=== PATIENT | female | born 1955 | race Asian ===

== ENCOUNTER 2016-10-15 06:36 | Day surgery (SDC) | payer MEDICAID ==
[2016-10-15 06:59] LABS: HEMATOCRIT 39.9 % (36.0-47.0); HEMOGLOBIN 13.1 g/dL (12.0-15.5); HGB HCT DIFFERENCE -0.6; MEAN CORPUSCULAR HEMOGLOBIN 30.9 pg (27.0-33.4); MEAN CORPUSCULAR HGB CONC 32.9 g/dL (32.0-36.0); MEAN CORPUSCULAR VOLUME 94 fl (80-97); RED BLOOD COUNT 4.25 10^6/uL (3.72-5.28); RED CELL DISTRIBUTION WIDTH 15.3 % (11.5-14.0); WHITE BLOOD COUNT 4.1 10^3/uL (4.0-10.5)
[2016-10-15 07:12] LABS: ANION GAP 18 (5-19); BLOOD UREA NITROGEN 65 mg/dL (7-20); CALCIUM 9.7 mg/dL (8.4-10.2); CARBON DIOXIDE 28 mmol/L (22-30); CHLORIDE 89 mmol/L (98-107); CREATININE RESULT 6.12 mg/dL (0.52-1.25); GLUCOSE 155 mg/dL (75-110); POTASSIUM 5.5 mmol/L (3.6-5.0); SODIUM 134.7 mmol/L (137-145)
[2016-10-15] MEDS ORDERED: LIDOCAINE 0.5% INJ-PF (5 MG/ML) 50 ML SDV ONE (08:07)
[2016-10-15] MEDS ORDERED: MIDAZOLAM 2 MG/2 ML INJ ONE (08:27)
[2016-10-15] MEDS ORDERED: HEPARIN SOD (PORCINE) 5,000 UNIT/ML 1 ML SYRINGE ONE (08:28)
[2016-10-15] MEDS ORDERED: FENTANYL CITRATE INJ/PF 100 MCG/2 ML AMPUL ONE (08:28)
[2016-10-15 10:43] VITALS: BP 135/68
--- NOTE | 2016-10-15 11:04 | PDOC DISCHARGE SUMMARY ---
Discharge Summary (SDC) - Discharge Final Diagnosis: 1 malfunctioning arteriovenous fistula. #2 end-stage renal disease on hemodialysis. #3 multiple comorbidities. Date of Surgery: 10/15/16 Discharge Date: 10/15/16 Condition: Fair Forms: Sedation D/C Instructions, Discharge POC-Surgical Service Treatment or Instructions: #1 activities within moderation encouraged. #2 follow up in my office by appointment in about 2 weeks. Call for appointment. #3 the wounds covered clean and dry under removed indialysis.. #4 hold off on school/work until evaluation in office. #5 may shower in 48 hours, keep operated area as dry as possible. #6 discharge from ambulatory when ASU criteria met. #7 medications per medication reconciliation sheet. Referrals: JANAY MORRIS MD [ACTIVE STAFF] - 10/24/16 8:15 am Discharge Diet: Other (Comments) - Renal Respiratory Treatments at Home: Deep Breathing/Coughing Discharge Activity: Activity As Tolerated, Balance Activity w/Rest, No Lifting/ Push/Pulling Home Care Assistance: None Needed Report the Following to Your Physician Immediately: Shortness of Breath, Nausea , Unusual Bleeding
--- NOTE | 2016-10-15 11:11 | Operative Report ---
Operative Report DATE OF SURGERY: 10/15/16 PREOPERATIVE DIAGNOSIS: #1 malfunctioning arteriovenous fistula. #2 end-stage renal disease on hemodialysis. #3 multiple comorbidities. POSTOPERATIVE DIAGNOSIS: #1 malfunctioning arteriovenous fistula. #2 end-stage renal disease on hemodialysis. #3 multiple comorbidities. OPERATION: #1 needle access into arteriovenous fistula, right brachiocephalic. The graft #2 angioplasty in arteriovenous fistula, cephalic. #3 angioplasty in right subclavian vein, central. #4 angiogram and interpretation. SURGEON: JANAY FAIR CHARGEMASTER SPECIALIST: none ANESTHESIA: Moderate Sedation TISSUE REMOVED OR ALTERED: Not applicable. COMPLICATIONS: None ESTIMATED BLOOD LOSS: 5 mL. INTRAOPERATIVE FINDINGS: Of a well-founded right brachiocephalic fistula. Firm all the way up to the deltopectoral groove and substantial. Good bruit. Angiographic finding of a short segment stenosis 30% of the adjacent lumen with a culprit collateral. This was about 4 cm from the subclavian cephalic junction. A second lesion is noted in the subclavian just before the innominate and this represents about 30% of the adjacent lumen also a short segment. The angioplasty succeeded in almost eliminating the subclavian stenosis a residual about 10% stenosis in the cephalic. Dilatation today was up to 9 mm. Subsequently he may need to go up to 10 or even 12 mm. The fistula which was quite firm initially softened appropriately at the end of the procedure that the hemodynamically significant lesions have been successfully addressed. PROCEDURE: PROCEDURE: After verifying the procedure and having obtained informed consent, the patient's left arm was prepared with Chlorhexidine and draped out with sterile linen. Local anesthesia infiltrated. Percutaneous access into the fistula ,[ antegrade], obtained about [6 cm] from the arteriovenous anastomosis using a micro puncture needle followed by micro puncture wire and then a micro puncture catheter. Angiogram demonstrated the aforementioned findings. Angioplasty was elected. A 0.035 Jennings wire was inserted, and over this, a 7 [place] short introducer was placed, this was followed by a [8] angioplasty balloon . Angioplasty was done covering the subclavian lesion. Inflating up to 14 atmospheres for 2 minutes.] The balloon was deflated and withdrawn and centered around the cephalic lesion. Inflation was done slowly, maximum of 14 tala for 2 minutes. Completion angiogram demonstrated residual stenoses. The balloon was now changed over the guidewire for a 9 mm angioplasty balloon. This was first inflated at the subclavian lesion for spheres for 2 minutes. It was withdrawn and angioplasty carefully done in the cephalic and up to 14 tala for 2 minutes. Completion angiograms showed [satisfactory result]. The instrumentation was now withdrawn over pressure for 10 minutes. Dressings applied, procedure concluded. Exposure time: 0.5 minutes Radiation: 10 kenzie per centimeters squared Contrast: 25 mL of Isovue-M 300, low osmolality. DICTATING PHYSICIAN: JANAY MORRIS M.D. cc: JANAY MORRIS M.D. ([id number]) >>
== END 2016-10-15 10:35 | disposition home or self-care (01) ==
LOC: CCL 06:36
PROVIDERS: ATTEND Surgery
PROC: 057D3DZ Dilation of Right Cephalic Vein with Intraluminal Device, Percutaneous Approach (ICD-10-PCS; principal; 2016-10-15)
DX: T82.858A Stenosis of other vascular prosthetic devices, implants and grafts, initial encounter (principal); Y83.2 Surgical operation with anastomosis, bypass or graft as the cause of abnormal reaction of the patient, or of later complication, without mention of misadventure at the time of the procedure; N18.6 End stage renal disease; Z99.2 Dependence on renal dialysis; E11.22 Type 2 diabetes mellitus with diabetic chronic kidney disease; D64.9 Anemia, unspecified; E03.9 Hypothyroidism, unspecified; Z79.899 Other long term (current) drug therapy
CPT/HCPCS: 36415; 85027; 80048; 36902; 36901; C1725; C1752; C1894; Q9967; C1769; J2250; J1644 ×2; J3010; J3490

== ENCOUNTER → 2017-05-08 | Outpatient (CLI) | payer MEDICAID ==
--- NOTE | 2017-05-08 18:36 | XCELERA REPORT ---
[address] [address] Transthoracic Echocardiogram Report Name: NILA MANSFIELD Age: 62 yrs Gender: Female : 1955 Patient Status: Outpatient Patient Location: Study Date: 05/08/2017 10:50 AM Height: 60 in Weight: 105 lb BSA: 1.4 m2 Reason For Study: MURMUR Ordering Physician: GARLAND DURAN Performed By: Naomi Bryan Interpretation Summary Calcified aortic root with no dilatation. 3 cusps sclerotic AV with no and no AR. Mild MR with mild L A enlargement, no MS no MVP. No LVH, normal LVEF 65% with LVDD and no LV enlargement. No RWMA Mod TR with mod pulm hypertension [id number], RAP 8.No RH enlargement. MMode/2D Measurements & Calculations RVDd: 2.4 cm LVIDd: 4.5 cm FS: 39.8 % Ao root diam: IVSd: 0.87 cm LVIDs: 2.7 cm EDV(Teich): 94.1 ml 2.6 cm LVPWd: 0.85 cm ESV(Teich): 27.8 ml Ao root area: EF(Teich): 70.5 % 5.3 cm2 LA dimension: 3.6 cm LVOT diam: LVLd ap4: 7.7 cm SV(MOD-sp4): 54.0 ml 1.8 cm EDV(MOD-sp4): LA A2Cs: 18.0 cm2 LVOT area: 79.0 ml LVLs ap4: 5.8 cm 2.5 cm2 ESV(MOD-sp4): 25.0 ml EF(MOD-sp4): 68.4 % LA A4Cs: LA length: 5.8 cm LA Vol Index (BP): LA Volume: 53.9 ml 20.5 cm2 38.0 ml/m2 Doppler Measurements & Calculations MV E max alex: MV P1/2t max alex: Ao V2 max: LV V1 max P.2 cm/sec 145.3 cm/sec 190.0 cm/sec 5.8 mmHg MV A max alex: MV P1/2t: 56.3 msec Ao max PG: LV V1 mean P.0 cm/sec MVA(P1/2t): 3.9 cm2 14.4 mmHg 3.4 mmHg MV E/A: 1.3 MV dec slope: Ao V2 mean: LV V1 max: 124.1 cm/sec 119.9 cm/sec 755.6 cm/sec2 Ao mean PG: LV V1 mean: 7.2 mmHg 87.9 cm/sec Ao V2 VTI: LV V1 VTI: 45.0 cm 32.5 cm ADIEL(I,D): 1.8 cm2 ADIEL(V,D): 1.6 cm2 SV(LVOT): 80.4 ml PA V2 max: TR max alex: 106.4 cm/sec 301.9 cm/sec PA max P.5 mmHg TR max P.5 mmHg Left Ventricle The left ventricle is normal in size, thickness and function. There is normal left ventricular wall thickness. The left ventricular ejection fraction is normal. Doppler measurements suggest impaired left ventricular relaxation, which is associated with grade I/IV or mild diastolic dysfunction. No regional wall motion abnormalities noted. There is no thrombus. Right Ventricle The right ventricle is normal in size, thickness and function. Atria The right atrium is normal. The left atrial size is normal. The left atrium is mildly dilated. The interatrial septum is intact with no evidence for an atrial septal defect. Mitral Valve The mitral valve is normal in structure and function. There is no evidence of mitral valve prolapse. There is no mitral valve stenosis. There is a mild amount of mitral regurgitation. Aortic Valve The aortic valve is moderately calcified. The aortic valve opens well. The aortic valve is trileaflet. There is no aortic valvular vegetation. There is no aortic stenosis. No aortic regurgitation is present. Tricuspid Valve The tricuspid valve is not well visualized, but is grossly normal. There is no tricuspid valve prolapse. There is no tricuspid stenosis. There is a moderate amount of tricuspid regurgitation. Best estimated right ventricular systolic pressure is elevated at 40-50mmHg. Pulmonic Valve There is no pulmonic valvular regurgitation. Great Vessels The aortic root is normal size. Effusions Minimal pericardial effusion. I WMSI = 1.00 % Normal = 100 Segments Size X - Cannot 2 - 4 - 1-2 small Interpret 1 - Normal Hypokinetic 3 - AkineticDyskinetic 3-5 moderate 5 - 6-14 large Aneurysmal 15-16 diffuse : GARLAND DURAN > Garland Duran
== END ==
LOC: SP 10:27
PROVIDERS: ATTEND Internal Medicine Cardiovascular Disease
DX: R01.1 Cardiac murmur, unspecified (principal)
CPT/HCPCS: 93306

== ENCOUNTER 2018-10-02 11:48 | Emergency (ER) | payer MEDICAID ==
[2018-10-02 12:21] LABS: VENOUS BLOOD HCO3 28.4 mmol/L (20-32); VENOUS BLOOD PCO2 46.4 mmHg (35-63); VENOUS BLOOD PH 7.4 (7.30-7.42)
[2018-10-02 12:24] LABS: HEMATOCRIT 32.5 % (36.0-47.0); HEMOGLOBIN 11.1 g/dL (12.0-15.5); MEAN CORPUSCULAR HEMOGLOBIN 32.6 pg (27.0-33.4); MEAN CORPUSCULAR VOLUME 96 fl (80-97); PLATELET COUNT 194 10^3/uL (150-450); RED BLOOD COUNT 3.39 10^6/uL (3.72-5.28); RED CELL DISTRIBUTION WIDTH 14.6 % (11.5-14.0); WHITE BLOOD COUNT 8.6 10^3/uL (4.0-10.5)
[2018-10-02 12:29] LABS: INTERNATIONAL RATION (INR) 1.15; PROTHROMBIN TIME 15.3 SEC (11.4-15.4)
[2018-10-02 12:44] LABS: ALANINE AMINOTRANSFERASE 13 U/L (9-52); ALBUMIN 4.6 g/dL (3.5-5.0); ALKALINE PHOSPHATASE 157 U/L (38-126); ANION GAP 16 (5-19); ASPARTATE AMINO TRANSFERASE 23 U/L (14-36); BILIRUBIN,DIRECT 1.1 mg/dL (0.0-0.4); BILIRUBIN,TOTAL 1.9 mg/dL (0.2-1.3); BLOOD UREA NITROGEN 43 mg/dL (7-20); CALCIUM 9.2 mg/dL (8.4-10.2); CARBON DIOXIDE 25 mmol/L (22-30); CHLORIDE 96 mmol/L (98-107); GLUCOSE 158 mg/dL (75-110); POTASSIUM 4.8 mmol/L (3.6-5.0); SODIUM 137.4 mmol/L (137-145); TOTAL PROTEIN 8.1 g/dL (6.3-8.2)
[2018-10-02 12:46] LABS: ABSOLUTE LYMPHOCYTES# (MANUAL) 0.3 10^3/uL (0.5-4.7); ABSOLUTE MONOCYTES # (MANUAL) 0.1 10^3/uL (0.1-1.4); ABSOLUTE NEUTROPHILS# (MANUAL) 8.1 10^3/uL (1.7-8.2); BASOPHILS % (MANUAL) 0 % (0-2); EOSINOPHILS % (MANUAL) 1 % (0-6); HYPOCHROMASIA SLIGHT; LYMPHOCYTES % (MANUAL) 4 % (13-45); MONOCYTES % (MANUAL) 1 % (3-13); PLATELET COMMENT ADEQUATE; POLYCHROMASIA SLIGHT; SEGMENTED NEUTROPHILS % (MAN) 94 % (42-78); TOTAL CELLS COUNTED 100; TOXIC GRANULATION SLIGHT
--- NOTE | 2018-10-02 13:02 | RADIOLOGY REPORT (SQ) ---
EXAM DESCRIPTION: CHEST SINGLE VIEW COMPLETED DATE/TIME: 10/02/2018 12:52 pm REASON FOR STUDY: bed 17 sepsis protocol COMPARISON: 08/18/2015 03/25/2015. EXAM PARAMETERS: NUMBER OF VIEWS: One view. TECHNIQUE: Single frontal radiographic view of the chest acquired. RADIATION DOSE: NA LIMITATIONS: None. FINDINGS: LUNGS AND PLEURA: Elevation of the left hemidiaphragm with left pleural effusion, similar appearance to prior studies. Small right pleural effusion. MEDIASTINUM AND HILAR STRUCTURES: No masses. Contour normal. HEART AND VASCULAR STRUCTURES: Heart normal in size. Normal vasculature. BONES: No acute findings. HARDWARE: Right subclavian stent. OTHER: No other significant finding. IMPRESSION: ELEVATION OF THE LEFT HEMIDIAPHRAGM WITH LEFT PLEURAL EFFUSION, SIMILAR TO PRIOR STUDIES . SMALL RIGHT PLEURAL EFFUSION. TECHNICAL DOCUMENTATION: JOB ID: [id number] [employer]- All Rights Reserved Reading location - IP/workstation name: [facility]
[2018-10-02 14:54] LABS: APPEARANCE,URINE CLEAR; BILIRUBIN,URINE NEGATIVE (NEGATIVE); COLOR,URINE YELLOW; GLUCOSE, URINE >=500 mg/dL (NEGATIVE); KETONES,URINE NEGATIVE (NEGATIVE); LEUKOCYTE ESTERASE,URINE NEGATIVE (NEGATIVE); NITRITE,URINE NEGATIVE (NEGATIVE); PROTEIN,URINE 100 mg/dL (NEGATIVE); URINE SPECIFIC GRAVITY 1.007; UROBILINOGEN,URINE NEGATIVE mg/dL (<2.0)
--- NOTE | 2018-10-02 15:54 | ER Document Report ---
ED General - General Chief Complaint: Shortness Of Breath Stated Complaint: FEVER Time Seen by Provider: 10/02/18 12:25 Notes: 63-year-old female brought in by EMS for evaluation of fever not feeling well with abdominal pain. Reportedly patient was at dialysis when she developed a fever and chills. Did not feel well. Was brought here. Patient would like fluid drained off her abdomen. Has chronic ascites. States that she feels much better but did receive Tylenol before she came. TRAVEL OUTSIDE OF THE [place] IN LAST 30 DAYS: No - HPI Onset: Just prior to arrival Onset/Duration: Constant Quality of pain: Achy Severity: Mild Pain Level: 1 Associated symptoms: Fever Exacerbated by: Movement - Related Data Allergies/Adverse Reactions: insulin aspart [Insulin Aspart] Allergy (Verified 08/29/16 09:14) Past Medical History - General Information source: Patient, [facility] Records - Social History Smoking Status: Never Smoker Frequency of alcohol use: None Drug Abuse: None Lives with: Family Family History: CVA Patient has suicidal ideation: No Patient has homicidal ideation: No - Past Medical History Cardiac Medical History: Reports: Hx Atrial Fibrillation, Hx Hypertension Denies: Hx Coronary Artery Disease, Hx Heart Attack Pulmonary Medical History: Reports: Hx Pneumonia Denies: Hx Asthma, Hx Bronchitis, Hx COPD Neurological Medical History: Denies: Hx Cerebrovascular Accident, Hx Seizures Endocrine Medical History: Reports: Hx Diabetes Mellitus Type 2 Renal/ Medical History: Reports: Hx End Stage Renal Disease, Hx Hemodialysis. Denies: Hx Peritoneal Dialysis GI Medical History: Reports: Hx Gastroesophageal Reflux Disease Musculoskeletal Medical History: Denies Hx Arthritis Psychiatric Medical History: Reports: Hx Depression Past Surgical History: Reports: Hx Orthopedic Surgery - aug Rhip hemiprosthesis, Hx Vascular Surgery - Fistula RUE - Immunizations Immunizations up to date: No Hx Diphtheria, Pertussis, Tetanus Vaccination: Yes Review of Systems - Review of Systems Notes: Review of systems positive for the following: Fever, abdominal pain, chills Constitutional: +Chills, denies diaphoresis, +Fever, denies malaise, Weakness EENT: denies: Eye discharge, Blurred vision, Tearing, Double vision, Nose congestion, Nose discharge, Throat swelling, Mouth pain Cardiovascular: denies: Palpitations, Heart racing, denies chest pain but does report shortness of breath and orthopnea Respiratory: denies: Cough, Hurts to breathe, Wheezing,. Positive for shortness of breath Gastrointestinal: denies:, Diarrhea, Nausea, Vomiting, Black stools, bright red blood in stool. Positive for abdominal pain Genitourinary: denies: Burning, Dysuria, Discharge, Frequency, Flank pain, Hematuria Musculoskeletal: denies: Joint pain, Joint swelling, Muscle pain, Muscle stiffness, back pain Hematologic/Lymphatic: denies: Anemia, Easy bleeding, Easy bruising, Blood clots Neurological/Psychological: denies: Confusion, Dementia, Depression, Loss of consciousness Skin: No lesions, no masses, no skin breakdown, no abscesses Physical Exam - Vital signs Vitals: Resp Pulse Ox 28 H 100 10/02/18 12:02 10/02/18 12:02 Interpretation: Normal - General General appearance: Appears well, Alert - HEENT Head: Normocephalic, Atraumatic Eyes: Normal Pupils: PERRL - Respiratory Respiratory status: No respiratory distress Chest status: Nontender Breath sounds: Normal Chest palpation: Normal - Cardiovascular Rhythm: Regular Heart sounds: Normal auscultation Murmur: No - Abdominal Inspection: Normal Distension: No distension Bowel sounds: Normal Tenderness: Tender - Moderate tenderness right upper quadrant Organomegaly: No organomegaly - Back Back: Normal, Nontender - Extremities General upper extremity: Normal inspection, Nontender, Normal color, Normal ROM, Normal temperature, Other - AV fistula site present in the right upper extremity with positive thrill and bruit. No signs of infection. No abscess. General lower extremity: Normal inspection, Nontender, Normal color, Normal ROM, Normal temperature, Normal weight bearing. No: Kit's sign - Neurological Neuro grossly intact: Yes Cognition: Normal Orientation: AAOx4 [place] Coma Scale Eye Opening: Spontaneous [place] Coma Scale Verbal: Oriented [place] Coma Scale Motor: Obeys Commands [place] Coma Scale Total: 15 Speech: Normal Motor strength normal: LUE, RUE, LLE, RLE Sensory: Normal - Psychological Associated symptoms: Normal affect, Normal mood - Skin Skin Temperature: Warm Skin Moisture: Dry Skin Color: Normal Course - Re-evaluation Re-evalutation: 10/02/18 19:46 Due to the fact the patient had a fever and abdominal pain labs were obtained. Labs show slightly elevated bilirubin and slightly elevated AST and ALT. Ul trasound showed gallstones with a dilated common bile duct. Consulted with surgery as well as medicine. They feel patient needs to be transferred where there is a doggy daycare activities director and ability to potentially do an ERCP. CT scan ordered to help further delineate any other intra-abdominal pathology. Consulted with [facility]. They have accepted the patient. Dr. Arias accepting. CT scan was ordered which showed some airspace disease. We have given her antibiotics. Possible that her fever is coming from PNA but these incidental findings with the gallbladder and common bile duct still need to be addressed. We will proceed with transfer patient 10/02/18 20:40 10/02/18 20:46 Laboratory 10/02/18 10/02/18 10/02/18 11:58 11:58 11:58 WBC RBC Hgb Hct MCV MCH MCHC RDW Plt Count Total Counted Seg Neutrophils % Seg Neuts % (Manual) Lymphocytes % Lymphocytes % (Manual) Monocytes % Monocytes % (Manual) Eosinophils % Eosinophils % (Manual) Basophils % Basophils % (Manual) Absolute Neutrophils Abs Neuts (Manual) Absolute Lymphocytes Abs Lymphs (Manual) Absolute Monocytes Abs Monocytes (Manual) Absolute Eosinophils Absolute Eos (Manual) Absolute Basophils Abs Basophils (Manual) Toxic Granulation Platelet Comment Polychromasia Hypochromasia PT 15.3 INR 1.15 VBG pH VBG pCO2 VBG HCO3 VBG Base Excess Sodium 137.4 Potassium 4.8 Chloride 96 L Carbon Dioxide 25 Anion Gap 16 BUN 43 H Creatinine 6.20 H Est GFR ( Amer) 8 L Est GFR (Non-Af Amer) 7 L Glucose 158 H Lactic Acid 1.6 Calcium 9.2 Total Bilirubin 1.9 H Direct Bilirubin 1.1 H Neonat Total Bilirubin Not Reportable Neonat Direct Bilirubin Not Reportable Neonat Indirect Bili Not Reportable AST 23 ALT 13 Alkaline Phosphatase 157 H Total Protein 8.1 Albumin 4.6 Lipase Urine Color Urine Appearance Urine pH Ur Specific [place] Urine Protein Urine Glucose (UA) Urine Ketones Urine Blood Urine Nitrite Urine Bilirubin Urine Urobilinogen Ur Leukocyte Esterase Urine WBC (Auto) Urine RBC (Auto) Urine Ascorbic Acid Influenza A (Rapid) Influenza B (Rapid) 10/02/18 10/02/18 10/02/18 11:58 11:58 12:00 WBC 8.6 RBC 3.39 L Hgb 11.1 L Hct 32.5 L MCV 96 MCH 32.6 MCHC 34.0 RDW 14.6 H Plt Count 194 Total Counted 100 Seg Neutrophils % Not Reportable Seg Neuts % (Manual) 94 H Lymphocytes % Not Reportable Lymphocytes % (Manual) 4 L Monocytes % Not Reportable Monocytes % (Manual) 1 L Eosinophils % Not Reportable Eosinophils % (Manual) 1 Basophils % Not Reportable Basophils % (Manual) 0 Absolute Neutrophils Not Reportable Abs Neuts (Manual) 8.1 Absolute Lymphocytes Not Reportable Abs Lymphs (Manual) 0.3 L Absolute Monocytes Not Reportable Abs Monocytes (Manual) 0.1 Absolute Eosinophils Not Reportable Absolute Eos (Manual) 0.1 Absolute Basophils Not Reportable Abs Basophils (Manual) 0.0 Toxic Granulation SLIGHT Platelet Comment ADEQUATE Polychromasia SLIGHT Hypochromasia SLIGHT PT INR VBG pH 7.40 VBG pCO2 46.4 VBG HCO3 28.4 VBG Base Excess 3.0 Sodium Potassium Chloride Carbon Dioxide Anion Gap BUN Creatinine Est GFR ( Amer) Est GFR (Non-Af Amer) Glucose Lactic Acid Calcium Total Bilirubin Direct Bilirubin Neonat Total Bilirubin Neonat Direct Bilirubin Neonat Indirect Bili AST ALT Alkaline Phosphatase Total Protein Albumin Lipase 121.3 Urine Color Urine Appearance Urine pH Ur Specific [place] Urine Protein Urine Glucose (UA) Urine Ketones Urine Blood Urine Nitrite Urine Bilirubin Urine Urobilinogen Ur Leukocyte Esterase Urine WBC (Auto) Urine RBC (Auto) Urine Ascorbic Acid Influenza A (Rapid) Influenza B (Rapid) 10/02/18 10/02/18 14:42 19:10 WBC RBC Hgb Hct MCV MCH MCHC RDW Plt Count Total Counted Seg Neutrophils % Seg Neuts % (Manual) Lymphocytes % Lymphocytes % (Manual) Monocytes % Monocytes % (Manual) Eosinophils % Eosinophils % (Manual) Basophils % Basophils % (Manual) Absolute Neutrophils Abs Neuts (Manual) Absolute Lymphocytes Abs Lymphs (Manual) Absolute Monocytes Abs Monocytes (Manual) Absolute Eosinophils Absolute Eos (Manual) Absolute Basophils Abs Basophils (Manual) Toxic Granulation Platelet Comment Polychromasia Hypochromasia PT INR VBG pH VBG pCO2 VBG HCO3 VBG Base Excess Sodium Potassium Chloride Carbon Dioxide Anion Gap BUN Creatinine Est GFR ( Amer) Est GFR (Non-Af Amer) Glucose Lactic Acid Calcium Total Bilirubin Direct Bilirubin Neonat Total Bilirubin Neonat Direct Bilirubin Neonat Indirect Bili AST ALT Alkaline Phosphatase Total Protein Albumin Lipase Urine Color YELLOW Urine Appearance CLEAR Urine pH 8.0 Ur Specific [place] 1.007 Urine Protein 100 H Urine Glucose (UA) >=500 H Urine Ketones NEGATIVE Urine Blood NEGATIVE Urine Nitrite NEGATIVE Urine Bilirubin NEGATIVE Urine Urobilinogen NEGATIVE Ur Leukocyte Esterase NEGATIVE Urine WBC (Auto) 0 Urine RBC (Auto) 1 Urine Ascorbic Acid NEGATIVE Influenza A (Rapid) NEGATIVE Influenza B (Rapid) NEGATIVE Chest X-Ray 10/02/18 11:55 IMPRESSION: ELEVATION OF THE LEFT HEMIDIAPHRAGM WITH LEFT PLEURAL EFFUSION, SIMILAR TO PRIOR STUDIES. SMALL RIGHT PLEURAL EFFUSION. Abdomen Ultrasound 10/02/18 15:53 IMPRESSION: Contracted gallbladder with stones. The common bile duct is dilated. Atrophic right kidney. Moderate ascites. Abdomen/Pelvis CT 10/02/18 19:13 IMPRESSION: Left pleural effusion. Likely airspace disease in the left base pneumonia versus atelectasis. Large amount of ascites. Atrophic kidneys. Cholelithiasis. - Vital Signs Vital signs: Temp Pulse Resp BP Pulse Ox 99.4 F 28 H 133/52 H 97 10/02/18 12:30 10/02/18 19:01 10/02/18 19:00 10/02/18 19:01 - Laboratory Result Diagrams: 10/02/18 12:00 10/02/18 11:58 Laboratory results interpreted by me: 10/02/18 10/02/18 10/02/18 11:58 12:00 14:42 RBC 3.39 L Hgb 11.1 L Hct 32.5 L RDW 14.6 H Seg Neuts % (Manual) 94 H Lymphocytes % (Manual) 4 L Monocytes % (Manual) 1 L Abs Lymphs (Manual) 0.3 L Chloride 96 L BUN 43 H Creatinine 6.20 H Est GFR ( Amer) 8 L Est GFR (Non-Af Amer) 7 L Glucose 158 H Total Bilirubin 1.9 H Direct Bilirubin 1.1 H Alkaline Phosphatase 157 H Urine Protein 100 H Urine Glucose (UA) >=500 H Discharge - Discharge Clinical Impression: Common bile duct (CBD) obstruction Cholelithiases Qualifiers: Cholelithiasis location: bile duct Cholecystitis presence: without cholecystitis Biliary obstruction: with biliary obstruction Qualified Code(s): K80.51 - Calculus of bile duct without cholangitis or cholecystitis with obstruction Renal failure, chronic Qualifiers: Chronic kidney disease stage: stage 5 Qualified Code(s): N18.5 - Chronic kidney disease, stage 5 Condition: Good Disposition: [facility] Referrals: PARIS DURAN MD [Primary Care Provider] - Follow up as needed
--- NOTE | 2018-10-02 18:20 | RADIOLOGY REPORT (SQ) ---
EXAM DESCRIPTION: U/S ABDOMEN LIMITED W/O DOP COMPLETED DATE/TIME: 10/02/2018 6:09 pm REASON FOR STUDY: RUQ pain COMPARISON: 06/04/2016 TECHNIQUE: Dynamic and static grayscale images acquired of the abdomen and recorded on PACS. Sailaja galeana selected color Doppler and spectral images recorded. LIMITATIONS: None. FINDINGS: PANCREAS: No masses. Visualized pancreatic duct normal caliber. LIVER: No masses. Echotexture normal. LIVER VASCULATURE: Normal directional flow of the main portal vein and hepatic veins. GALLBLADDER: Contracted gallbladder with stones. ULTRASOUND-DETECTED WILSON'S SIGN: Negative. INTRAHEPATIC DUCTS AND COMMON DUCT: Common bile duct is dilated at 10.8 mm. There does not appear to be significant intrahepatic ductal dilatation. INFERIOR VENA CAVA: Not imaged. AORTA: Proximal aorta was normal. Mid and distal aorta were obscured by gas. RIGHT KIDNEY: Small size, 5.1 cm. Normal echogenicity. No solid or suspicious masses. No hydronephro sis. No calcifications. PERITONEAL AND RIGHT PLEURAL SPACE: Moderate ascites. OTHER: No other significant findings. IMPRESSION: Contracted gallbladder with stones. The common bile duct is dilated. Atrophic right ki dney. Moderate ascites. TECHNICAL DOCUMENTATION: JOB ID: [id number] [employer]- All Rights Reserved Reading location - IP/workstation name: [email or web address]
[2018-10-02] MEDS ORDERED: CEFOXITIN INJ 1 GM VIAL IV ONE (18:24)
--- NOTE | 2018-10-02 19:40 | RADIOLOGY REPORT (SQ) ---
EXAM DESCRIPTION: CT ABD/PELVIS NO ORAL OR IV COMPLETED DATE/TIME: 10/02/2018 7:23 pm REASON FOR STUDY: abd pain COMPARISON: 08/16/2015 TECHNIQUE: CT scan of the abdomen and pelvis performed without intravenous or oral contrast. Images reviewed with lung, soft tissue, and bone windows. Reconstructed coronal and sagittal MPR images revi ewed. All images stored on PACS. All CT scanners at this facility use dose modulation, iterative reconstruction, and/or weight based d osing when appropriate to reduce radiation dose to as low as reasonably achievable (ALARA). [facility]: Dose Right [facility]: CareDose [facility]: Dose Right [facility]: Teradose 4D [facility]: [employer] RADIATION DOSE: CT Rad equipment meets quality standard of care and radiation dose reduction techniq ues were employed. CTDIvol: 4.9 mGy. DLP: 257 mGy-cm.mGy. LIMITATIONS: None. FINDINGS: LOWER CHEST: Opacification the left base. Left pleural effusion. NON-CONTRASTED LIVER, SPLEEN, ADRENALS: Evaluation limited by lack of IV contrast. No identified sign ificant masses. PANCREAS: No masses. No peripancreatic inflammatory changes. GALLBLADDER: Cholelithiasis. RIGHT KIDNEY AND URETER: Atrophic. No significant calcifications. No hydronephrosis or hydrourete r. LEFT KIDNEY AND URETER: Atrophic. No significant calcifications. No hydronephrosis or hydroureter . AORTA AND RETROPERITONEUM: No aneurysm. No retroperitoneal masses or adenopathy. BOWEL AND PERITONEAL CAVITY: There is large amount of ascites. No bowel mass is identified. APPENDIX: Not identified. PELVIS, BLADDER, AND ABDOMINAL WALL:No abnormal masses. Ascites. Bladder normal. BONES: Right hip arthroplasty. No osseous lesions. OTHER: No other significant finding. IMPRESSION: Left pleural effusion. Likely airspace disease in the left base pneumonia versus atelec tasis. Large amount of ascites. Atrophic kidneys. Cholelithiasis. COMMENT: Quality ID # [id number]: Final reports with documentation of one or more dose reduction techniques (e.g., Automated exposure control, adjustment of the mA and/or kV according to patient size, use of iterative reconstruction technique) TECHNICAL DOCUMENTATION: JOB ID: [id number] [employer]- All Rights Reserved Reading location - IP/workstation name: [email or web address]
[2018-10-02 19:52] LABS: A TYPE INFLUENZA AG NEGATIVE (NEGATIVE); B INFLUENZA AG NEGATIVE (NEGATIVE)
[2018-10-02] MEDS ORDERED: CEFOXITIN 1 GM/D5W RTU 1 GM/50 ML RTUPB IV SCH (22:00)
--- NOTE | 2018-10-02 23:09 | EKG REPORT ---
SEVERITY:- NORMAL ECG - SINUS RHYTHM : Confirmed by: Jessika Griggs 02-Oct-2018 23:08:56
[2018-10-03 00:04] VITALS: BP 142/57
== END 2018-10-03 00:10 | disposition short-term general hospital (02) ==
LOC: ER 11:48
DX: K80.51 Calculus of bile duct without cholangitis or cholecystitis with obstruction (principal); N18.5 Chronic kidney disease, stage 5; R06.02 Shortness of breath; R50.9 Fever, unspecified; R10.9 Unspecified abdominal pain
CPT/HCPCS: 93005; 36415; 87040; 87086; 82962; 83690; 85025; 85610; 80053; 81001; 82803; 83605; 87804; 71045; 76705; 74176; 93010; J0694 ×2